=== PATIENT | male | born 1960 | race African-American/Black ===

== ENCOUNTER 2017-09-03 04:38 | Emergency (ER) | payer MEDICAID, OTHER ==
[~2017-09-03] VITALS: Ht 182.9 cm; Wt 86.5 kg
[2017-09-03 07:00] VITALS: BP 112/70
[2017-09-03] MEDS ORDERED: IBUPROFEN 600MG TABLET PO ONE (07:00)
== END 2017-09-03 07:03 | disposition home or self-care (01) ==
LOC: ER 04:38
DX: S09.8XXA Other specified injuries of head, initial encounter (principal); M54.5 Low back pain; R55 Syncope and collapse; I10 Essential (primary) hypertension; Y08.89XA Assault by other specified means, initial encounter; Y93.89 Activity, other specified; Y92.89 Other specified places as the place of occurrence of the external cause; Y99.8 Other external cause status
CPT/HCPCS: 70450; 72100; 99284